=== PATIENT | female | born 1950 | race Caucasian/White ===

== ENCOUNTER 2021-01-21 10:45 | Inpatient (IN) ==
[2021-01-21] MEDS ORDERED: Isovue-370 500 ML BOTTLE IVP ONE (10:55)
[2021-01-21 11:30] LABS: Hemoglobin 12.7 g/dL (11.5-15.4); Mean Corpuscular Hemoglobin 24.3 pg (28.0-33.3); Mean Corpuscular Volume 78.5 fL (83.0-100.0); Mean Platelet Volume 9.7 fL (9.4-12.4); Platelet Count 243 K/mcL (140-400); Red Blood Count 5.22 M/mcL (3.82-4.97); Red Cell Distribution Width 15.2 % (11.5-14.5); White Blood Count 3.8 K/mcL (4.3-11.1)
[2021-01-21 11:54] LABS: Lymphocytes # 1.2 K/mcL (0.6-4.6); Monocytes # 0.3 K/mcL (0.0-1.3); Neutrophils # 2.3 K/mcL (1.6-8.9); Platelet Estimate Normal (Normal)
[2021-01-21 11:57] LABS: Alanine Aminotransferase 13 Units/L (7-52); Albumin 3.7 g/dL (3.5-5.7); Albumin/Globulin Ratio 1.1 (1.1-2.2); Alkaline Phosphatase 39 Units/L (34-104); Aspartate Amino Transferase 28 Units/L (13-39); BUN/Creatinine Ratio 25 (6-26); Bilirubin,Direct 0.1 mg/dL (0.0-0.2); Bilirubin,Indirect 0.4 mg/dL (0.0-1.0); Bilirubin,Total 0.5 mg/dL (0.3-1.0); Blood Urea Nitrogen 22 mg/dL (8-23); Calcium 8.8 mg/dL (8.6-10.3); Carbon Dioxide 29 mEq/L (23-29); Chloride 92 mEq/L (98-107); Globulin 3.5 g/dL (2.4-3.5); Glucose 111 mg/dL (70-105); Osmolality,Calculated 282 (280-300); Sodium 134 mEq/L (136-145); Total Protein 7.2 g/dL (6.4-8.9); Troponin I 0.07 ng/mL (< 0.04); eGFR For African Americans > 60 (> 60); eGFR For Non-African Americans > 60 (> 60)
[2021-01-21] MEDS ORDERED: Naloxone 0.4 MG/ML INJ IVP PRN (14:20)
[2021-01-21] MEDS ORDERED: Ondansetron 4 MG/2 ML VIAL IVP PRN (14:20)
[2021-01-21] MEDS ORDERED: Ipratropium 1 PUFF INHALER IH PRN (14:23)
[2021-01-21] MEDS ORDERED: Magnesium Sulfate 1 GM/102 ML PIGGYBACK IVPB ONE (14:24)
[2021-01-21] MEDS ORDERED: Dextrose Gel 15 GM/37.5 ML TUBE PO PRN ×2 (14:25)
[2021-01-21] MEDS ORDERED: D5% in Water 1,000 ML IVC PRN (14:25)
[2021-01-21] MEDS ORDERED: *HR* Dextrose 50 % in Water (Syg) 50 ML SYRINGE IVP PRN (14:25)
[2021-01-21 14:45] LABS: C-Reactive Protein 150 mg/L (Less than 10)
[2021-01-21 15:15] LABS: Influenza A PCR Negative (Negative); Influenza B PCR Negative (Negative); Resp. Syncytial Virus PCR Negative (Negative)
[2021-01-21 15:16] LABS: SARS-CoV-2 by PCR (In House) Positive (Negative)
[2021-01-21] MEDS: DilTIAZem 50 MG/50 ML IV.SOLN IVC SCH (15:19)
[2021-01-21] MEDS: Insulin LISPRO 300 UNITS/3 ML VIAL SUBQ SCH (18:17)
[2021-01-21] MEDS ORDERED: 0.9 % Sodium Chloride 500 ML ONE (19:43)
[2021-01-22] MEDS: DilTIAZem 50 MG/50 ML IV.SOLN IVC SCH ×2 (00:08→05:55)
[2021-01-22 04:49] LABS: Basophils % 0.5 %; Hemoglobin 11.7 g/dL (11.5-15.4); Immature Granulocytes % 0.9 % (0-4); Lymphocytes # 0.9 K/mcL (0.6-4.6); Lymphocytes % 20.8 %; Mean Corpuscular HGB Conc 32.5 g/dL (31.6-35.5); Mean Corpuscular Hemoglobin 25.3 pg (28.0-33.3); Mean Corpuscular Volume 77.9 fL (83.0-100.0); Mean Platelet Volume 10.1 fL (9.4-12.4); Monocytes # 0.3 K/mcL (0.0-1.3); Monocytes % 6.4 %; Platelet Count 276 K/mcL (140-400); Red Blood Count 4.62 M/mcL (3.82-4.97); Red Cell Distribution Width 15.1 % (11.5-14.5); Segmented Neutrophils % 71.4 %; White Blood Count 4.2 K/mcL (4.3-11.1)
[2021-01-22 05:07] LABS: BUN/Creatinine Ratio 30 (6-26); Blood Urea Nitrogen 18 mg/dL (8-23); Calcium 8.8 mg/dL (8.6-10.3); Carbon Dioxide 25 mEq/L (23-29); Chloride 94 mEq/L (98-107); Glucose 152 mg/dL (70-105); Magnesium 1.7 mg/dL (1.6-2.6); Osmolality,Calculated 277 (280-300); Potassium 3.5 mEq/L (3.5-5.1); Sodium 131 mEq/L (136-145); eGFR For African Americans > 60 (> 60); eGFR For Non-African Americans > 60 (> 60)
[2021-01-22 05:12] LABS: Platelet Estimate Normal (Normal); Poikilocytosis 1+ (Not Present); Reactive Lymphocytes Present (Not Present)
[2021-01-22] MEDS: Insulin LISPRO 300 UNITS/3 ML VIAL SUBQ SCH ×3 (08:28→16:09)
[2021-01-22] MEDS: Cholecalciferol (D-3) 1,000 UNIT (25MCG) TABLET PO SCH (09:26)
[2021-01-22] MEDS: Pregabalin 75 MG CAPSULE PO SCH ×2 (09:26→21:14)
[2021-01-22] MEDS: Aspirin Enteric Coated 81 MG Tablet PO SCH (09:27)
[2021-01-22] MEDS: Cyanocobalamin (B-12) 1,000 MCG TABLET PO SCH (09:27)
[2021-01-22] MEDS: Cyclosporine [Restasis] 1 EACH Droperette OP SCH ×2 (09:28→21:15)
[2021-01-22] MEDS: Furosemide 20 MG/2 ML VIAL IVP SCH (09:28)
[2021-01-22] MEDS ORDERED: Fluticasone Propionate Nasal 50 MCG/SPRAY BOTTLE NS PRN (18:28)
[2021-01-22] MEDS: Melatonin 3 MG TABLET PO PRN (22:29)
[2021-01-23 02:03] LABS: Fibrinogen 524 mg/dL (169-393)
[2021-01-23 02:05] LABS: D-Dimer 1304 ng/mLFEU (0-500)
[2021-01-23 02:12] LABS: BUN/Creatinine Ratio 31 (6-26); Blood Urea Nitrogen 19 mg/dL (8-23); Calcium 8.7 mg/dL (8.6-10.3); Carbon Dioxide 25 mEq/L (23-29); Chloride 94 mEq/L (98-107); Glucose 125 mg/dL (70-105); Lactate Dehydrogenase 288 Units/L (140-271); Magnesium 1.6 mg/dL (1.6-2.6); Osmolality,Calculated 274 (280-300); Phosphorous 3.4 mg/dL (2.7-4.5); Potassium 3.6 mEq/L (3.5-5.1); Sodium 130 mEq/L (136-145); eGFR For African Americans > 60 (> 60); eGFR For Non-African Americans > 60 (> 60)
[2021-01-23 03:29] LABS: Ferritin 266 ng/mL (10-120)
[2021-01-23] MEDS: *HR* Enoxaparin 40 MG/0.4 ML SYRINGE SQ SCH (05:35)
[2021-01-23] MEDS: Insulin LISPRO 300 UNITS/3 ML VIAL SUBQ SCH ×3 (08:46→16:50)
[2021-01-23] MEDS: Aspirin Enteric Coated 81 MG Tablet PO SCH (09:36)
[2021-01-23] MEDS: Metoprolol 100 MG TABLET PO SCH ×2 (09:36→21:03)
[2021-01-23] MEDS: Cholecalciferol (D-3) 1,000 UNIT (25MCG) TABLET PO SCH (09:36)
[2021-01-23] MEDS: Furosemide 20 MG/2 ML VIAL IVP SCH (09:37)
[2021-01-23] MEDS: Pregabalin 75 MG CAPSULE PO SCH ×2 (09:37→21:03)
[2021-01-23] MEDS: Cyclosporine [Restasis] 1 EACH Droperette OP SCH ×2 (09:41→21:07)
[2021-01-23 15:26] LABS: ABG Base Excess 3 mEq/L (-2 to 3); ABG HCO3 26 mEq/L (21-27); ABG Oxygen Saturation 89 % (95-98); ABG PCO2 35 mmHg (35-45); ABG PH 7.48 pH Units (7.32-7.45); ABG PO2 52 mmHg (85-104); ABG TCO2 27 mEq/L (20-26)
[2021-01-23] MEDS: Melatonin 3 MG TABLET PO PRN (21:03)
[2021-01-24] MEDS: *HR* HYDROcodone/Acet 5/325 mg TABLET PO PRN ×2 (03:32→17:02)
[2021-01-24] MEDS: *HR* Enoxaparin 40 MG/0.4 ML SYRINGE SQ SCH (06:17)
[2021-01-24 07:02] LABS: BUN/Creatinine Ratio 45 (6-26); Blood Urea Nitrogen 28 mg/dL (8-23); Calcium 9.1 mg/dL (8.6-10.3); Carbon Dioxide 28 mEq/L (23-29); Chloride 94 mEq/L (98-107); Glucose 155 mg/dL (70-105); Magnesium 1.8 mg/dL (1.6-2.6); Osmolality,Calculated 285 (280-300); Phosphorous 5.4 mg/dL (2.7-4.5); Potassium 3.5 mEq/L (3.5-5.1); Sodium 133 mEq/L (136-145); eGFR For African Americans > 60 (> 60); eGFR For Non-African Americans > 60 (> 60)
[2021-01-24 07:10] LABS: Basophils % 0.7 %; Hematocrit 36.7 % (35.3-44.9); Hemoglobin 11.5 g/dL (11.5-15.4); Immature Granulocytes % 0.5 % (0-4); Lymphocytes # 1.2 K/mcL (0.6-4.6); Lymphocytes % 27.7 %; Mean Corpuscular HGB Conc 31.3 g/dL (31.6-35.5); Mean Corpuscular Hemoglobin 24.4 pg (28.0-33.3); Mean Corpuscular Volume 77.8 fL (83.0-100.0); Mean Platelet Volume 10.7 fL (9.4-12.4); Monocytes # 0.3 K/mcL (0.0-1.3); Monocytes % 6.2 %; Neutrophils # 2.7 K/mcL (1.6-8.9); Platelet Count 311 K/mcL (140-400); Red Blood Count 4.72 M/mcL (3.82-4.97); Red Cell Distribution Width 14.9 % (11.5-14.5); Segmented Neutrophils % 64.9 %; White Blood Count 4.2 K/mcL (4.3-11.1)
[2021-01-24] MEDS: Cholecalciferol (D-3) 1,000 UNIT (25MCG) TABLET PO SCH (08:02)
[2021-01-24] MEDS: Aspirin Enteric Coated 81 MG Tablet PO SCH (08:02)
[2021-01-24] MEDS: Metoprolol 100 MG TABLET PO SCH ×2 (08:02→20:40)
[2021-01-24] MEDS: Cyclosporine [Restasis] 1 EACH Droperette OP SCH ×2 (08:03→20:40)
[2021-01-24] MEDS: Pregabalin 75 MG CAPSULE PO SCH ×2 (08:03→20:40)
[2021-01-24] MEDS: Furosemide 20 MG/2 ML VIAL IVP SCH (08:04)
[2021-01-24] MEDS: Insulin LISPRO 300 UNITS/3 ML VIAL SUBQ SCH ×3 (08:04→16:56)
[2021-01-24 08:22] LABS: Platelet Estimate Normal (Normal); Reactive Lymphocytes Present (Not Present)
[2021-01-24] MEDS: clonazePAM 0.5 MG TABLET PO PRN (20:40)
[2021-01-24] MEDS: Melatonin 3 MG TABLET PO PRN (20:40)
[2021-01-25] MEDS: *HR* Enoxaparin 40 MG/0.4 ML SYRINGE SQ SCH (05:34)
[2021-01-25 05:45] LABS: BUN/Creatinine Ratio 45 (6-26); Blood Urea Nitrogen 30 mg/dL (8-23); Calcium 9.2 mg/dL (8.6-10.3); Carbon Dioxide 32 mEq/L (23-29); Chloride 92 mEq/L (98-107); Glucose 138 mg/dL (70-105); Magnesium 1.8 mg/dL (1.6-2.6); Osmolality,Calculated 286 (280-300); Phosphorous 3.9 mg/dL (2.7-4.5); Potassium 3.5 mEq/L (3.5-5.1); Sodium 134 mEq/L (136-145); eGFR For African Americans > 60 (> 60); eGFR For Non-African Americans > 60 (> 60)
[2021-01-25] MEDS: *HR* HYDROcodone/Acet 5/325 mg TABLET PO PRN ×2 (06:15→21:46)
[2021-01-25] MEDS: Insulin LISPRO 300 UNITS/3 ML VIAL SUBQ SCH ×3 (09:06→16:42)
[2021-01-25] MEDS: Metoprolol 100 MG TABLET PO SCH ×2 (09:07→21:47)
[2021-01-25] MEDS: Pregabalin 75 MG CAPSULE PO SCH ×2 (09:07→21:47)
[2021-01-25] MEDS: Cholecalciferol (D-3) 1,000 UNIT (25MCG) TABLET PO SCH (09:08)
[2021-01-25] MEDS: Aspirin Enteric Coated 81 MG Tablet PO SCH (09:08)
[2021-01-25] MEDS: polyethylene glycoL 3350 17 GM POWD.PACK PO SCH (09:09)
[2021-01-25] MEDS: Cyclosporine [Restasis] 1 EACH Droperette OP SCH ×2 (09:10→21:48)
[2021-01-25] MEDS: Cyanocobalamin (B-12) 1,000 MCG TABLET PO SCH (09:11)
[2021-01-25] MEDS: Sennosides/Docusate Sodium TABLET PO SCH ×2 (09:11→21:46)
[2021-01-25] MEDS: Furosemide 20 MG/2 ML VIAL IVP SCH (09:12)
[2021-01-25] MEDS: clonazePAM 0.5 MG TABLET PO PRN (21:46)
[2021-01-25] MEDS: Melatonin 3 MG TABLET PO PRN (21:46)
[2021-01-26 05:50] LABS: Basophils % 0.2 %; Eosinophils # 0.1 K/mcL (0.0-0.6); Eosinophils % 1.1 %; Hematocrit 36.9 % (35.3-44.9); Hemoglobin 11.8 g/dL (11.5-15.4); Immature Granulocytes % 0.8 % (0-4); Lymphocytes # 1.8 K/mcL (0.6-4.6); Lymphocytes % 28.2 %; Mean Corpuscular Hemoglobin 24.8 pg (28.0-33.3); Mean Corpuscular Volume 77.7 fL (83.0-100.0); Mean Platelet Volume 9.8 fL (9.4-12.4); Monocytes # 0.5 K/mcL (0.0-1.3); Monocytes % 7.7 %; Platelet Count 404 K/mcL (140-400); Red Blood Count 4.75 M/mcL (3.82-4.97); Red Cell Distribution Width 14.4 % (11.5-14.5)
[2021-01-26 05:57] LABS: White Blood Count 6.5 K/mcL (4.3-11.1)
[2021-01-26 05:58] LABS: Platelet Estimate Normal (Normal); Reactive Lymphocytes Present (Not Present)
[2021-01-26 06:02] LABS: BUN/Creatinine Ratio 41 (6-26); Blood Urea Nitrogen 26 mg/dL (8-23); Calcium 8.7 mg/dL (8.6-10.3); Carbon Dioxide 31 mEq/L (23-29); Chloride 93 mEq/L (98-107); Glucose 127 mg/dL (70-105); Magnesium 1.8 mg/dL (1.6-2.6); Osmolality,Calculated 282 (280-300); Phosphorous 3.8 mg/dL (2.7-4.5); Potassium 3.7 mEq/L (3.5-5.1); Sodium 133 mEq/L (136-145); eGFR For African Americans > 60 (> 60); eGFR For Non-African Americans > 60 (> 60)
[2021-01-26] MEDS: *HR* Enoxaparin 40 MG/0.4 ML SYRINGE SQ SCH (06:08)
[2021-01-26] MEDS: Insulin LISPRO 300 UNITS/3 ML VIAL SUBQ SCH ×3 (07:14→16:49)
[2021-01-26] MEDS: Pregabalin 75 MG CAPSULE PO SCH ×2 (08:00→21:26)
[2021-01-26] MEDS: Aspirin Enteric Coated 81 MG Tablet PO SCH (08:00)
[2021-01-26] MEDS: Sennosides/Docusate Sodium TABLET PO SCH ×2 (08:00→21:27)
[2021-01-26] MEDS: Metoprolol 100 MG TABLET PO SCH ×3 (08:00→21:19)
[2021-01-26] MEDS: Cholecalciferol (D-3) 1,000 UNIT (25MCG) TABLET PO SCH (08:00)
[2021-01-26] MEDS: Cyclosporine [Restasis] 1 EACH Droperette OP SCH ×2 (08:01→21:27)
[2021-01-26] MEDS: Furosemide 20 MG/2 ML VIAL IVP SCH (08:04)
[2021-01-26] MEDS: polyethylene glycoL 3350 17 GM POWD.PACK PO SCH (08:04)
[2021-01-26] MEDS: clonazePAM 0.5 MG TABLET PO PRN (21:26)
[2021-01-26] MEDS: *HR* HYDROcodone/Acet 5/325 mg TABLET PO PRN (21:27)
[2021-01-26] MEDS: Melatonin 3 MG TABLET PO PRN (21:27)
[2021-01-27] MEDS: *HR* Enoxaparin 40 MG/0.4 ML SYRINGE SQ SCH (06:31)
[2021-01-27 07:10] LABS: Fibrinogen 295 mg/dL (169-393)
[2021-01-27 07:13] LABS: D-Dimer 756 ng/mLFEU (0-500)
[2021-01-27 07:25] LABS: BUN/Creatinine Ratio 33 (6-26); Blood Urea Nitrogen 23 mg/dL (8-23); Calcium 8.9 mg/dL (8.6-10.3); Carbon Dioxide 33 mEq/L (23-29); Chloride 94 mEq/L (98-107); Glucose 119 mg/dL (70-105); Lactate Dehydrogenase 247 Units/L (140-271); Magnesium 1.9 mg/dL (1.6-2.6); Osmolality,Calculated 283 (280-300); Phosphorous 3.5 mg/dL (2.7-4.5); Potassium 3.5 mEq/L (3.5-5.1); Sodium 134 mEq/L (136-145); eGFR For African Americans > 60 (> 60); eGFR For Non-African Americans > 60 (> 60)
[2021-01-27] MEDS: Insulin LISPRO 300 UNITS/3 ML VIAL SUBQ SCH ×3 (07:26→16:55)
[2021-01-27 07:40] LABS: Ferritin 204 ng/mL (10-120)
[2021-01-27] MEDS: Furosemide 20 MG/2 ML VIAL IVP SCH (08:06)
[2021-01-27] MEDS: Cholecalciferol (D-3) 1,000 UNIT (25MCG) TABLET PO SCH (08:07)
[2021-01-27] MEDS: Pregabalin 75 MG CAPSULE PO SCH ×2 (08:07→21:10)
[2021-01-27] MEDS: Aspirin Enteric Coated 81 MG Tablet PO SCH (08:07)
[2021-01-27] MEDS: polyethylene glycoL 3350 17 GM POWD.PACK PO SCH (08:07)
[2021-01-27] MEDS: Sennosides/Docusate Sodium TABLET PO SCH ×2 (08:07→21:10)
[2021-01-27] MEDS: Cyclosporine [Restasis] 1 EACH Droperette OP SCH ×2 (08:08→21:11)
[2021-01-27] MEDS: Metoprolol 100 MG TABLET PO SCH ×2 (08:08→21:10)
[2021-01-27] MEDS: Cyanocobalamin (B-12) 1,000 MCG TABLET PO SCH (08:17)
[2021-01-27] MEDS: clonazePAM 0.5 MG TABLET PO PRN (21:10)
[2021-01-27] MEDS: *HR* HYDROcodone/Acet 5/325 mg TABLET PO PRN (21:11)
[2021-01-27] MEDS: Melatonin 3 MG TABLET PO PRN (21:11)
[2021-01-27] MEDS ORDERED: *HR* Labetalol 20 MG/4 ML SYRINGE IVP PRN (22:45)
[2021-01-27] MEDS ORDERED: *HR* Labetalol 20 MG/4 ML SYRINGE IVP ONE (22:48)
[2021-01-28] MEDS: *HR* Enoxaparin 40 MG/0.4 ML SYRINGE SQ SCH (06:36)
[2021-01-28 07:42] LABS: Basophils % 0.5 %; Eosinophils # 0.4 K/mcL (0.0-0.6); Eosinophils % 6.3 %; Hematocrit 41.1 % (35.3-44.9); Hemoglobin 12.7 g/dL (11.5-15.4); Immature Granulocytes % 0.7 % (0-4); Lymphocytes # 1.7 K/mcL (0.6-4.6); Lymphocytes % 29.2 %; Mean Corpuscular HGB Conc 30.9 g/dL (31.6-35.5); Mean Corpuscular Hemoglobin 24.6 pg (28.0-33.3); Mean Corpuscular Volume 79.7 fL (83.0-100.0); Mean Platelet Volume 9.4 fL (9.4-12.4); Monocytes # 0.4 K/mcL (0.0-1.3); Monocytes % 6.7 %; Neutrophils # 3.2 K/mcL (1.6-8.9); Platelet Count 405 K/mcL (140-400); Red Blood Count 5.16 M/mcL (3.82-4.97); Red Cell Distribution Width 14.4 % (11.5-14.5); Segmented Neutrophils % 56.6 %; White Blood Count 5.7 K/mcL (4.3-11.1)
[2021-01-28 08:06] LABS: Alanine Aminotransferase 20 Units/L (7-52); Albumin 3.4 g/dL (3.5-5.7); Albumin/Globulin Ratio 1.2 (1.1-2.2); Alkaline Phosphatase 38 Units/L (34-104); Aspartate Amino Transferase 20 Units/L (13-39); BUN/Creatinine Ratio 31 (6-26); Bilirubin,Total 0.4 mg/dL (0.3-1.0); Blood Urea Nitrogen 21 mg/dL (8-23); Calcium 8.9 mg/dL (8.6-10.3); Carbon Dioxide 34 mEq/L (23-29); Chloride 95 mEq/L (98-107); Globulin 2.8 g/dL (2.4-3.5); Glucose 118 mg/dL (70-105); Lactate Dehydrogenase 260 Units/L (140-271); Osmolality,Calculated 286 (280-300); Potassium 3.7 mEq/L (3.5-5.1); Sodium 136 mEq/L (136-145); Total Protein 6.2 g/dL (6.4-8.9); eGFR For African Americans > 60 (> 60); eGFR For Non-African Americans > 60 (> 60)
[2021-01-28] MEDS: Sennosides/Docusate Sodium TABLET PO SCH ×2 (08:14→20:14)
[2021-01-28] MEDS: Aspirin Enteric Coated 81 MG Tablet PO SCH (08:14)
[2021-01-28] MEDS: Metoprolol 100 MG TABLET PO SCH ×2 (08:14→20:15)
[2021-01-28] MEDS: Cholecalciferol (D-3) 1,000 UNIT (25MCG) TABLET PO SCH (08:15)
[2021-01-28] MEDS: Pregabalin 75 MG CAPSULE PO SCH ×2 (08:15→20:14)
[2021-01-28] MEDS: Furosemide 20 MG/2 ML VIAL IVP SCH (08:17)
[2021-01-28] MEDS: polyethylene glycoL 3350 17 GM POWD.PACK PO SCH (08:17)
[2021-01-28] MEDS: Cyclosporine [Restasis] 1 EACH Droperette OP SCH ×2 (08:19→20:16)
[2021-01-28 08:21] LABS: Ferritin 154 ng/mL (10-120)
[2021-01-28 08:58] LABS: C-Reactive Protein 13 mg/L (Less than 10)
[2021-01-28] MEDS: Insulin LISPRO 300 UNITS/3 ML VIAL SUBQ SCH ×3 (11:56→16:07)
[2021-01-28] MEDS ORDERED: Bisacodyl 10 MG RECTAL SUPPOSITORY RC ONE ×2 (13:04→18:07)
[2021-01-28] MEDS: *HR* HYDROcodone/Acet 5/325 mg TABLET PO PRN (20:14)
[2021-01-28] MEDS: clonazePAM 0.5 MG TABLET PO PRN (20:14)
[2021-01-28] MEDS: Melatonin 3 MG TABLET PO PRN (20:15)
[2021-01-29] MEDS: *HR* Enoxaparin 40 MG/0.4 ML SYRINGE SQ SCH (05:39)
[2021-01-29] MEDS: *HR* HYDROcodone/Acet 5/325 mg TABLET PO PRN ×2 (05:39→20:43)
[2021-01-29] MEDS: polyethylene glycoL 3350 17 GM POWD.PACK PO SCH (09:25)
[2021-01-29] MEDS: Sennosides/Docusate Sodium TABLET PO SCH ×2 (09:25→20:43)
[2021-01-29] MEDS: Cholecalciferol (D-3) 1,000 UNIT (25MCG) TABLET PO SCH (09:26)
[2021-01-29] MEDS: Pregabalin 75 MG CAPSULE PO SCH ×2 (09:26→20:42)
[2021-01-29] MEDS: Aspirin Enteric Coated 81 MG Tablet PO SCH (09:26)
[2021-01-29] MEDS: Metoprolol 100 MG TABLET PO SCH ×2 (09:26→20:43)
[2021-01-29] MEDS: Insulin LISPRO 300 UNITS/3 ML VIAL SUBQ SCH ×3 (09:29→16:59)
[2021-01-29] MEDS: Cyanocobalamin (B-12) 1,000 MCG TABLET PO SCH (09:29)
[2021-01-29] MEDS: Cyclosporine [Restasis] 1 EACH Droperette OP SCH ×2 (09:31→20:43)
[2021-01-29] MEDS: Furosemide 20 MG/2 ML VIAL IVP SCH (09:31)
[2021-01-29 11:48] LABS: Basophils % 0.4 %; Eosinophils # 0.4 K/mcL (0.0-0.6); Eosinophils % 8.2 %; Hematocrit 41.1 % (35.3-44.9); Hemoglobin 12.9 g/dL (11.5-15.4); Immature Granulocytes % 0.8 % (0-4); Lymphocytes # 0.7 K/mcL (0.6-4.6); Lymphocytes % 15.3 %; Mean Corpuscular HGB Conc 31.4 g/dL (31.6-35.5); Mean Corpuscular Hemoglobin 24.9 pg (28.0-33.3); Mean Corpuscular Volume 79.3 fL (83.0-100.0); Mean Platelet Volume 9.6 fL (9.4-12.4); Monocytes # 0.3 K/mcL (0.0-1.3); Monocytes % 5.9 %; Neutrophils # 3.3 K/mcL (1.6-8.9); Platelet Count 448 K/mcL (140-400); Red Blood Count 5.18 M/mcL (3.82-4.97); Red Cell Distribution Width 14.6 % (11.5-14.5); Segmented Neutrophils % 69.4 %; White Blood Count 4.8 K/mcL (4.3-11.1)
[2021-01-29 12:07] LABS: Alanine Aminotransferase 24 Units/L (7-52); Albumin 3.5 g/dL (3.5-5.7); Albumin/Globulin Ratio 1.3 (1.1-2.2); Alkaline Phosphatase 38 Units/L (34-104); Aspartate Amino Transferase 21 Units/L (13-39); BUN/Creatinine Ratio 32 (6-26); Bilirubin,Total 0.4 mg/dL (0.3-1.0); Blood Urea Nitrogen 21 mg/dL (8-23); Calcium 8.9 mg/dL (8.6-10.3); Carbon Dioxide 32 mEq/L (23-29); Chloride 94 mEq/L (98-107); Globulin 2.7 g/dL (2.4-3.5); Glucose 197 mg/dL (70-105); Osmolality,Calculated 286 (280-300); Potassium 3.4 mEq/L (3.5-5.1); Sodium 134 mEq/L (136-145); Total Protein 6.2 g/dL (6.4-8.9); eGFR For African Americans > 60 (> 60); eGFR For Non-African Americans > 60 (> 60)
[2021-01-29] MEDS: Melatonin 3 MG TABLET PO PRN (20:42)
[2021-01-29] MEDS: clonazePAM 0.5 MG TABLET PO PRN (20:43)
[2021-01-30] MEDS: *HR* HYDROcodone/Acet 5/325 mg TABLET PO PRN (04:48)
[2021-01-30] MEDS: *HR* Enoxaparin 40 MG/0.4 ML SYRINGE SQ SCH (04:48)
[2021-01-30] MEDS: Insulin LISPRO 300 UNITS/3 ML VIAL SUBQ SCH ×3 (07:24→16:32)
[2021-01-30] MEDS: Aspirin Enteric Coated 81 MG Tablet PO SCH (10:47)
[2021-01-30] MEDS: Pregabalin 75 MG CAPSULE PO SCH ×2 (10:48→20:19)
[2021-01-30] MEDS: Sennosides/Docusate Sodium TABLET PO SCH ×2 (10:48→20:19)
[2021-01-30] MEDS: Cholecalciferol (D-3) 1,000 UNIT (25MCG) TABLET PO SCH (10:48)
[2021-01-30] MEDS: polyethylene glycoL 3350 17 GM POWD.PACK PO SCH (11:02)
[2021-01-30] MEDS: Cyclosporine [Restasis] 1 EACH Droperette OP SCH (11:09)
[2021-01-30] MEDS: Metoprolol 100 MG TABLET PO SCH ×2 (11:10→20:20)
[2021-01-30] MEDS: Furosemide 20 MG/2 ML VIAL IVP SCH (13:14)
[2021-01-30 13:57] LABS: Basophils % 0.7 %; Eosinophils # 0.3 K/mcL (0.0-0.6); Eosinophils % 6.2 %; Hematocrit 38.5 % (35.3-44.9); Hemoglobin 11.7 g/dL (11.5-15.4); Immature Granulocytes % 0.5 % (0-4); Lymphocytes # 1.3 K/mcL (0.6-4.6); Lymphocytes % 30.3 %; Mean Corpuscular HGB Conc 30.4 g/dL (31.6-35.5); Mean Corpuscular Hemoglobin 24.4 pg (28.0-33.3); Mean Corpuscular Volume 80.2 fL (83.0-100.0); Mean Platelet Volume 9.2 fL (9.4-12.4); Monocytes # 0.4 K/mcL (0.0-1.3); Monocytes % 8.7 %; Neutrophils # 2.4 K/mcL (1.6-8.9); Platelet Count 364 K/mcL (140-400); Red Cell Distribution Width 14.6 % (11.5-14.5); Segmented Neutrophils % 53.6 %; White Blood Count 4.4 K/mcL (4.3-11.1)
[2021-01-30 14:14] LABS: Alanine Aminotransferase 21 Units/L (7-52); Albumin 3.3 g/dL (3.5-5.7); Albumin/Globulin Ratio 1.3 (1.1-2.2); Alkaline Phosphatase 38 Units/L (34-104); Aspartate Amino Transferase 20 Units/L (13-39); BUN/Creatinine Ratio 31 (6-26); Bilirubin,Total 0.4 mg/dL (0.3-1.0); Blood Urea Nitrogen 20 mg/dL (8-23); Calcium 8.7 mg/dL (8.6-10.3); Carbon Dioxide 32 mEq/L (23-29); Chloride 95 mEq/L (98-107); Globulin 2.6 g/dL (2.4-3.5); Glucose 174 mg/dL (70-105); Osmolality,Calculated 285 (280-300); Potassium 3.6 mEq/L (3.5-5.1); Sodium 134 mEq/L (136-145); Total Protein 5.9 g/dL (6.4-8.9); eGFR For African Americans > 60 (> 60); eGFR For Non-African Americans > 60 (> 60)
[2021-01-30] MEDS ORDERED: Artificial Tears SOLN 15 ML BOTTLE BOTH EYES PRN (16:35)
[2021-01-31] MEDS: Cyclosporine [Restasis] 1 EACH Droperette OP SCH ×3 (01:34→21:40)
[2021-01-31] MEDS: *HR* HYDROcodone/Acet 5/325 mg TABLET PO PRN ×2 (04:37→19:38)
[2021-01-31 05:23] LABS: Basophils % 0.5 %; Eosinophils # 0.2 K/mcL (0.0-0.6); Eosinophils % 3.7 %; Hematocrit 37.6 % (35.3-44.9); Hemoglobin 11.8 g/dL (11.5-15.4); Immature Granulocytes % 0.5 % (0-4); Lymphocytes # 1.5 K/mcL (0.6-4.6); Lymphocytes % 25.1 %; Mean Corpuscular HGB Conc 31.4 g/dL (31.6-35.5); Mean Corpuscular Hemoglobin 24.8 pg (28.0-33.3); Monocytes # 0.5 K/mcL (0.0-1.3); Monocytes % 7.8 %; Neutrophils # 3.7 K/mcL (1.6-8.9); Platelet Count 417 K/mcL (140-400); Red Blood Count 4.76 M/mcL (3.82-4.97); Red Cell Distribution Width 14.4 % (11.5-14.5); Segmented Neutrophils % 62.4 %; White Blood Count 5.9 K/mcL (4.3-11.1)
[2021-01-31 05:47] LABS: Alanine Aminotransferase 23 Units/L (7-52); Albumin 3.4 g/dL (3.5-5.7); Albumin/Globulin Ratio 1.3 (1.1-2.2); Alkaline Phosphatase 37 Units/L (34-104); Aspartate Amino Transferase 19 Units/L (13-39); BUN/Creatinine Ratio 31 (6-26); Bilirubin,Total 0.5 mg/dL (0.3-1.0); Blood Urea Nitrogen 16 mg/dL (8-23); Calcium 8.8 mg/dL (8.6-10.3); Carbon Dioxide 32 mEq/L (23-29); Chloride 96 mEq/L (98-107); Globulin 2.6 g/dL (2.4-3.5); Glucose 113 mg/dL (70-105); Osmolality,Calculated 284 (280-300); Potassium 4.2 mEq/L (3.5-5.1); Sodium 136 mEq/L (136-145); eGFR For African Americans > 60 (> 60); eGFR For Non-African Americans > 60 (> 60)
[2021-01-31] MEDS: *HR* Enoxaparin 40 MG/0.4 ML SYRINGE SQ SCH (06:04)
[2021-01-31] MEDS: Insulin LISPRO 300 UNITS/3 ML VIAL SUBQ SCH ×3 (09:07→17:46)
[2021-01-31] MEDS: Pregabalin 75 MG CAPSULE PO SCH ×2 (09:08→19:38)
[2021-01-31] MEDS: Aspirin Enteric Coated 81 MG Tablet PO SCH (09:08)
[2021-01-31] MEDS: Sennosides/Docusate Sodium TABLET PO SCH ×2 (09:09→19:38)
[2021-01-31] MEDS: Cholecalciferol (D-3) 1,000 UNIT (25MCG) TABLET PO SCH (09:09)
[2021-01-31] MEDS: polyethylene glycoL 3350 17 GM POWD.PACK PO SCH (09:13)
[2021-01-31] MEDS: Furosemide 20 MG/2 ML VIAL IVP SCH (09:16)
[2021-01-31] MEDS: Metoprolol 100 MG TABLET PO SCH (11:59)
[2021-01-31] MEDS ORDERED: Metoprolol 100 MG TABLET PO SCH (21:00)
[2021-02-01] MEDS: *HR* Enoxaparin 40 MG/0.4 ML SYRINGE SQ SCH (04:53)
[2021-02-01] MEDS: Aspirin Enteric Coated 81 MG Tablet PO SCH (08:09)
[2021-02-01] MEDS: Pregabalin 75 MG CAPSULE PO SCH ×2 (08:09→20:00)
[2021-02-01] MEDS: polyethylene glycoL 3350 17 GM POWD.PACK PO SCH (08:09)
[2021-02-01] MEDS: Sennosides/Docusate Sodium TABLET PO SCH ×2 (08:09→19:59)
[2021-02-01] MEDS: Cholecalciferol (D-3) 1,000 UNIT (25MCG) TABLET PO SCH (08:09)
[2021-02-01] MEDS: Furosemide 20 MG/2 ML VIAL IVP SCH (08:11)
[2021-02-01] MEDS: Insulin LISPRO 300 UNITS/3 ML VIAL SUBQ SCH ×3 (08:11→17:21)
[2021-02-01] MEDS: Cyclosporine [Restasis] 1 EACH Droperette OP SCH ×2 (08:13→21:58)
[2021-02-01] MEDS: Cyanocobalamin (B-12) 1,000 MCG TABLET PO SCH (08:15)
[2021-02-01] MEDS: hydroCHLOROthiazide 25 MG TABLET PO SCH (19:59)
[2021-02-01] MEDS: *HR* HYDROcodone/Acet 5/325 mg TABLET PO PRN (20:07)
[2021-02-02] MEDS: *HR* HYDROcodone/Acet 5/325 mg TABLET PO PRN ×2 (02:39→20:20)
[2021-02-02 03:50] LABS: Hematocrit 39.7 % (35.3-44.9); Hemoglobin 12.5 g/dL (11.5-15.4); Mean Corpuscular HGB Conc 31.5 g/dL (31.6-35.5); Mean Corpuscular Hemoglobin 25.2 pg (28.0-33.3); Mean Corpuscular Volume 79.9 fL (83.0-100.0); Mean Platelet Volume 9.7 fL (9.4-12.4); Platelet Count 359 K/mcL (140-400); Red Blood Count 4.97 M/mcL (3.82-4.97); Red Cell Distribution Width 14.7 % (11.5-14.5); White Blood Count 5.5 K/mcL (4.3-11.1)
[2021-02-02 03:54] LABS: BUN/Creatinine Ratio 23 (6-26); Blood Urea Nitrogen 16 mg/dL (8-23); Calcium 9.2 mg/dL (8.6-10.3); Carbon Dioxide 33 mEq/L (23-29); Chloride 95 mEq/L (98-107); Glucose 124 mg/dL (70-105); Osmolality,Calculated 281 (280-300); Potassium 3.9 mEq/L (3.5-5.1); Sodium 134 mEq/L (136-145); eGFR For African Americans > 60 (> 60); eGFR For Non-African Americans > 60 (> 60)
[2021-02-02] MEDS: *HR* Enoxaparin 40 MG/0.4 ML SYRINGE SQ SCH (05:26)
[2021-02-02] MEDS: Insulin LISPRO 300 UNITS/3 ML VIAL SUBQ SCH ×3 (07:57→16:31)
[2021-02-02] MEDS: Sennosides/Docusate Sodium TABLET PO SCH ×2 (08:31→20:22)
[2021-02-02] MEDS: Pregabalin 75 MG CAPSULE PO SCH ×2 (08:31→20:21)
[2021-02-02] MEDS: Aspirin Enteric Coated 81 MG Tablet PO SCH (08:32)
[2021-02-02] MEDS: polyethylene glycoL 3350 17 GM POWD.PACK PO SCH (08:32)
[2021-02-02] MEDS: Cholecalciferol (D-3) 1,000 UNIT (25MCG) TABLET PO SCH (08:32)
[2021-02-02] MEDS: hydroCHLOROthiazide 25 MG TABLET PO SCH ×2 (08:32→20:21)
[2021-02-02] MEDS: Furosemide 20 MG/2 ML VIAL IVP SCH (08:35)
[2021-02-02] MEDS: Cyclosporine [Restasis] 1 EACH Droperette OP SCH (08:36)
[2021-02-02] MEDS: clonazePAM 0.5 MG TABLET PO PRN (20:21)
[2021-02-02] MEDS: Melatonin 3 MG TABLET PO PRN (20:22)
[2021-02-03] MEDS: Cyclosporine [Restasis] 1 EACH Droperette OP SCH ×3 (02:43→21:12)
[2021-02-03] MEDS: *HR* Enoxaparin 40 MG/0.4 ML SYRINGE SQ SCH (05:53)
[2021-02-03] MEDS: Insulin LISPRO 300 UNITS/3 ML VIAL SUBQ SCH ×3 (07:29→16:29)
[2021-02-03] MEDS: polyethylene glycoL 3350 17 GM POWD.PACK PO SCH (07:52)
[2021-02-03] MEDS: Pregabalin 75 MG CAPSULE PO SCH ×2 (07:52→21:12)
[2021-02-03] MEDS: hydroCHLOROthiazide 25 MG TABLET PO SCH ×2 (07:52→21:12)
[2021-02-03] MEDS: Cyanocobalamin (B-12) 1,000 MCG TABLET PO SCH (07:53)
[2021-02-03] MEDS: Sennosides/Docusate Sodium TABLET PO SCH ×2 (07:53→21:11)
[2021-02-03] MEDS: Aspirin Enteric Coated 81 MG Tablet PO SCH (07:53)
[2021-02-03] MEDS: Cholecalciferol (D-3) 1,000 UNIT (25MCG) TABLET PO SCH (07:53)
[2021-02-03 10:20] LABS: Basophils # 0.1 K/mcL (0.0-0.2); Basophils % 1.9 %; Eosinophils # 0.2 K/mcL (0.0-0.6); Eosinophils % 5.3 %; Hematocrit 42.7 % (35.3-44.9); Hemoglobin 12.9 g/dL (11.5-15.4); Immature Granulocytes % 0.2 % (0-4); Lymphocytes # 1.4 K/mcL (0.6-4.6); Lymphocytes % 32.5 %; Mean Corpuscular HGB Conc 30.2 g/dL (31.6-35.5); Mean Corpuscular Hemoglobin 24.7 pg (28.0-33.3); Mean Corpuscular Volume 81.8 fL (83.0-100.0); Mean Platelet Volume 9.2 fL (9.4-12.4); Monocytes # 0.4 K/mcL (0.0-1.3); Monocytes % 10.3 %; Neutrophils # 2.1 K/mcL (1.6-8.9); Platelet Count 337 K/mcL (140-400); Red Blood Count 5.22 M/mcL (3.82-4.97); Red Cell Distribution Width 15.5 % (11.5-14.5); Segmented Neutrophils % 49.8 %; White Blood Count 4.2 K/mcL (4.3-11.1)
[2021-02-03 11:08] LABS: BUN/Creatinine Ratio 23 (6-26); Blood Urea Nitrogen 18 mg/dL (8-23); Calcium 9.2 mg/dL (8.6-10.3); Carbon Dioxide 32 mEq/L (23-29); Chloride 97 mEq/L (98-107); Glucose 168 mg/dL (70-105); Osmolality,Calculated 292 (280-300); Potassium 4.2 mEq/L (3.5-5.1); Sodium 138 mEq/L (136-145); eGFR For African Americans > 60 (> 60); eGFR For Non-African Americans > 60 (> 60)
[2021-02-03] MEDS: Furosemide 20 MG/2 ML VIAL IVP SCH (19:12)
[2021-02-03] MEDS: Melatonin 3 MG TABLET PO PRN (21:12)
[2021-02-03] MEDS: clonazePAM 0.5 MG TABLET PO PRN (22:29)
[2021-02-04] MEDS: *HR* Enoxaparin 40 MG/0.4 ML SYRINGE SQ SCH (05:19)
[2021-02-04] MEDS: *HR* HYDROcodone/Acet 5/325 mg TABLET PO PRN ×2 (05:20→20:14)
[2021-02-04] MEDS: Insulin LISPRO 300 UNITS/3 ML VIAL SUBQ SCH ×3 (09:47→16:26)
[2021-02-04] MEDS: polyethylene glycoL 3350 17 GM POWD.PACK PO SCH (09:55)
[2021-02-04] MEDS: Cholecalciferol (D-3) 1,000 UNIT (25MCG) TABLET PO SCH (09:55)
[2021-02-04] MEDS: Sennosides/Docusate Sodium TABLET PO SCH ×2 (09:56→20:04)
[2021-02-04] MEDS: dexAMETHasone 4 MG TABLET PO SCH (09:56)
[2021-02-04] MEDS: Pregabalin 75 MG CAPSULE PO SCH ×2 (09:56→20:05)
[2021-02-04] MEDS: hydroCHLOROthiazide 25 MG TABLET PO SCH ×2 (09:56→20:05)
[2021-02-04] MEDS: Aspirin Enteric Coated 81 MG Tablet PO SCH (09:56)
[2021-02-04] MEDS: Cyclosporine [Restasis] 1 EACH Droperette OP SCH ×2 (09:57→20:05)
[2021-02-04] MEDS: Melatonin 3 MG TABLET PO PRN (20:04)
[2021-02-04] MEDS: clonazePAM 0.5 MG TABLET PO PRN (20:14)
[2021-02-05] MEDS: *HR* HYDROcodone/Acet 5/325 mg TABLET PO PRN ×2 (01:50→11:39)
[2021-02-05] MEDS: *HR* Enoxaparin 40 MG/0.4 ML SYRINGE SQ SCH (05:28)
[2021-02-05 05:32] LABS: Mean Corpuscular HGB Conc 31.1 g/dL (31.6-35.5); Mean Corpuscular Volume 80.4 fL (83.0-100.0); Mean Platelet Volume 9.3 fL (9.4-12.4); Platelet Count 261 K/mcL (140-400); Red Blood Count 4.48 M/mcL (3.82-4.97); Red Cell Distribution Width 15.1 % (11.5-14.5); White Blood Count 5.5 K/mcL (4.3-11.1)
[2021-02-05 05:35] LABS: Hemoglobin 11.2 g/dL (11.5-15.4)
[2021-02-05 05:54] LABS: BUN/Creatinine Ratio 27 (6-26); Blood Urea Nitrogen 20 mg/dL (8-23); Calcium 8.7 mg/dL (8.6-10.3); Carbon Dioxide 29 mEq/L (23-29); Chloride 98 mEq/L (98-107); Glucose 126 mg/dL (70-105); Osmolality,Calculated 280 (280-300); Potassium 3.8 mEq/L (3.5-5.1); Sodium 133 mEq/L (136-145); eGFR For African Americans > 60 (> 60); eGFR For Non-African Americans > 60 (> 60)
[2021-02-05] MEDS: Insulin LISPRO 300 UNITS/3 ML VIAL SUBQ SCH ×2 (08:13→12:24)
[2021-02-05] MEDS: Cyclosporine [Restasis] 1 EACH Droperette OP SCH (09:26)
[2021-02-05] MEDS: Sennosides/Docusate Sodium TABLET PO SCH (09:26)
[2021-02-05] MEDS: dexAMETHasone 4 MG TABLET PO SCH (09:27)
[2021-02-05] MEDS: Aspirin Enteric Coated 81 MG Tablet PO SCH (09:27)
[2021-02-05] MEDS: Cholecalciferol (D-3) 1,000 UNIT (25MCG) TABLET PO SCH (09:28)
[2021-02-05] MEDS: Pregabalin 75 MG CAPSULE PO SCH (09:28)
[2021-02-05] MEDS: hydroCHLOROthiazide 25 MG TABLET PO SCH (09:30)
[2021-02-05] MEDS: polyethylene glycoL 3350 17 GM POWD.PACK PO SCH (09:34)
[2021-02-05 09:45] VITALS: O2SAT 92
[2021-02-05] MEDS: Cyanocobalamin (B-12) 1,000 MCG TABLET PO SCH (10:01)
[2021-02-05 11:51] VITALS: BP 115/91; PULSE 79; TEMP 97.2
== END 2021-02-05 17:00 | disposition home health service (06) | DRG 177 ==
LOC: EMEROOARM 10:45 → 2NENU 10:45 → SUATTDRO 15:55 → 2NENU 17:50 → SUATTDRO 01-22 13:40
PROVIDERS: ADMIT Hospitalist; ATTEND Internal Medicine